=== PATIENT | male | born 1980 | race Caucasian/White ===

== ENCOUNTER 2019-01-30 12:22 | Emergency (ER) | payer SELFPAY ==
--- NOTE | 2019-01-30 12:40 | EDPHYS ---
Physician Documentation [facility] Name: Ray Cespedes Age: 38 yrs Sex: Male : 1980 Arrival Date: 01/30/2019 Time: 12:23 Bed 15 Private MD: ED Physician Anthony Coffmna HPI: 01/30 15:59 This 38 yrs old Male presents to ER via Ambulatory with complaints of Poison snw [place]. 15:59 The patient's rash thought to be caused by Dermatitis Contact allergy. The rash is snw located on the body diffusely. The rash can be described as erythematous, patchy. Onset: The symptoms/episode began/occurred suddenly, and became persistent. Associated signs and symptoms: Pertinent positives: itching. Severity of symptoms: At their worst the symptoms were moderate. The patient has experienced similar episodes in the past, several times. The patient has not recently seen a physician. outdoors working and thinks he was in contact with poison [place]. Historical: - Allergies: 12:31 No Known Allergies; tw2 - Home Meds: 12:31 None [Active]; tw2 - PMHx: 12:31 None; tw2 - PSHx: 12:31 None; tw2 - Immunization history:: Adult Immunizations up to date. - Social history:: Smoking status: . - Ebola Screening: : Patient denies travel to an Ebola-affected area in the 21 days before illness onset. ROS: 15:55 Constitutional: Negative for fever, chills, and weight loss, Eyes: Negative for injury, snw pain, redness, and discharge, ENT: Negative for injury, pain, and discharge, Neck: Negative for injury, pain, and swelling, Cardiovascular: Negative for chest pain, palpitations, and edema, Respiratory: Negative for shortness of breath, cough, wheezing, and pleuritic chest pain, Abdomen/GI: Negative for abdominal pain, nausea, vomiting, diarrhea, and constipation, Back: Negative for injury and pain, : Negative for injury, bleeding, discharge, and swelling, MS/Extremity: Negative for injury and deformity, Skin: Negative for injury and discoloration, + rash with irritation, oozing, pruritis Neuro: Negative for headache, weakness, numbness, tingling, and seizure, Psych: Negative for depression, anxiety, suicide ideation, homicidal ideation, and hallucinations. Exam: 15:54 Constitutional: This is a well developed, well nourished patient who is awake, alert, snw and in no acute distress. Head/Face: Normocephalic, atraumatic. Eyes: Pupils equal round and reactive to light, extra-ocular motions intact. Lids and lashes normal. Conjunctiva and sclera are non-icteric and not injected. Cornea within normal limits. Periorbital areas with no swelling, redness, or edema. ENT: Nares patent. No nasal discharge, no septal abnormalities noted. Tympanic membranes are normal and external auditory canals are clear. Oropharynx with no redness, swelling, or masses, exudates, or evidence of obstruction, uvula midline. Mucous membranes moist. Neck: Trachea midline, no thyromegaly or masses palpated, and no cervical lymphadenopathy. Supple, full range of motion without nuchal rigidity, or vertebral point tenderness. No Meningismus. Chest/axilla: Normal chest wall appearance and motion. Nontender with no deformity. No lesions are appreciated. Cardiovascular: Regular rate and rhythm with a normal S1 and S2. No gallops, murmurs, or rubs. Normal PMI, no JVD. No pulse deficits. Respiratory: Lungs have equal breath sounds bilaterally, clear to auscultation and percussion. No rales, rhonchi or wheezes noted. No increased work of breathing, no retractions or nasal flaring. Abdomen/GI: Soft, non-tender, with normal bowel sounds. No distension or tympany. No guarding or rebound. No evidence of tenderness throughout. Back: No spinal tenderness. No costovertebral tenderness. Full range of motion. MS/ Extremity: Pulses equal, no cyanosis. Neurovascular intact. Full, normal range of motion. Neuro: Awake and alert, GCS 15, oriented to person, place, time, and situation. Cranial nerves II-XII grossly intact. Motor strength 5/5 in all extremities. Sensory grossly intact. Cerebellar exam normal. Normal gait. Psych: Awake, alert, with orientation to person, place and time. Behavior, mood, and affect are within normal limits. 15:54 Skin: contact dermatitis. Vital Signs: 12:31 BP 116 / 68; Pulse 79; Resp 18; Temp 97.6(TE); Pulse Ox 100% on R/A; Weight 81.65 kg tw2 (R); Height 6 ft. 4 in. (193.04 cm) (R); Pain 5/10; 12:31 Body Mass Index 21.91 (81.65 kg, 193.04 cm) tw2 MDM: 12:34 Patient medically screened. snw 15:58 Data reviewed: vital signs, nurses notes. Data interpreted: Pulse oximetry: on room air snw is 100 %. Interpretation: normal. Counseling: I had a detailed discussion with the patient and/or guardian regarding: the historical points, exam findings, and any diagnostic results supporting the discharge/admit diagnosis, the need for outpatient follow up, to return to the emergency department if symptoms worsen or persist or if there are any questions or concerns that arise at home. Special discussion: Based on the history and exam findings, there is no indication for further emergent testing or inpatient evaluation. I discussed with the patient/guardian the need to see the primary care provider for further evaluation of the symptoms. Administered Medications: 12:53 Drug: predniSONE 40 mg Route: PO; rb1 12:54 Follow up: Response: Medication administered at discharge. rb1 12:53 Drug: Pepcid 20 mg Route: PO; rb1 12:53 Follow up: Response: Medication administered at discharge. rb1 12:53 Drug: ZyrTEC - Cetirizine 10 mg Route: PO; rb1 12:53 Follow up: Response: Medication administered at discharge. rb1 Disposition: 20:37 Co-signature as Attending Physician, Anthony Coffman MD Available for consultation at ps1 all times . Disposition: 01/30/19 12:40 Discharged to Home. Impression: Allergic contact dermatitis due to plants, except food. - Condition is Stable. - Discharge Instructions: Allergies, Adult, Contact Dermatitis, Poison [place] Dermatitis, Rash. - Prescriptions for Vistaril 25 mg Oral capsule - take 1 capsule by ORAL route 3 times per day; 30 capsule. Prednisone 20 mg Oral Tablet - take 2 tablet by ORAL route once daily for 5 days; 10 tablet. Pepcid 20 mg Oral Tablet - take 1 tablet by ORAL route once daily; 20 tablet. - Medication Reconciliation Form, Thank You Letter, Antibiotic Education, Prescription Opioid Use form. - Follow up: Private Physician; When: 2 - 3 days; Reason: Recheck today's complaints, Continuance of care, Re-evaluation by your physician. Follow up: Emergency Department; When: As needed; Reason: Worsening of condition. Signatures: Kandice Stacy, PROVIDER RELATIONS REPRESENTATIVE-C PROVIDER RELATIONS REPRESENTATIVE-Csnw Taylor Preciado, RN RN rb1 Marsha Lima RN RN tw2 Anthony Coffman MD MD ps1 Corrections: (The following items were deleted from the chart) 12:55 12:40 01/30/2019 12:40 Discharged to Home. Impression: Allergic contact dermatitis due rb1 to plants, except food. Condition is Stable. Forms are Medication Reconciliation Form, Thank You Letter, Antibiotic Education, Prescription Opioid Use. Follow up: Private Physician; When: 2 - 3 days; Reason: Recheck today's complaints, Continuance of care, Re-evaluation by your physician. Follow up: Emergency Department; When: As needed; Reason: Worsening of condition. snw
--- NOTE | 2019-01-30 12:40 | ER ---
Nurse's Notes [facility] Name: Ray Cespedes Age: 38 yrs Sex: Male : 1980 Arrival Date: 01/30/2019 Time: 12:23 Bed 15 Private MD: Diagnosis: Allergic contact dermatitis due to plants, except food Presentation: 01/30 12:29 Presenting complaint: Patient states: i was outside working last week, Tuesday, its tw2 on my arms and legs and my stomach, and my left arm is swollen, tried otc stuff, its not helping. Transition of care: patient was not received from another setting of care. Onset of symptoms was January 30, 2019. Risk Assessment: Do you want to hurt yourself or someone else? Patient reports no desire to harm self or others. Initial Sepsis Screen: Does the patient meet any 2 criteria? No. Patient's initial sepsis screen is negative. Does the patient have a suspected source of infection? No. Patient's initial sepsis screen is negative. Care prior to arrival: None. 12:29 Method Of Arrival: Ambulatory tw2 12:29 Acuity: DURAN 4 tw2 Triage Assessment: 12:31 General: Appears in no apparent distress. Behavior is calm, cooperative, appropriate tw2 for age. Pain: Complains of pain in left arm. Historical: - Allergies: 12:31 No Known Allergies; tw2 - Home Meds: 12:31 None [Active]; tw2 - PMHx: 12:31 None; tw2 - PSHx: 12:31 None; tw2 - Immunization history:: Adult Immunizations up to date. - Social history:: Smoking status: . - Ebola Screening: : Patient denies travel to an Ebola-affected area in the 21 days before illness onset. Screenin:35 Abuse screen: Denies threats or abuse. Nutritional screening: No deficits noted. rb1 Tuberculosis screening: No symptoms or risk factors identified. Fall Risk None identified. Assessment: 12:35 General: Appears in no apparent distress. comfortable, Behavior is calm, cooperative. rb1 Neuro: Level of Consciousness is awake, alert, obeys commands, Oriented to person, place, time, situation. Cardiovascular: Capillary refill < 3 seconds is brisk in bilateral fingers. Respiratory: Airway is patent Respiratory effort is even, unlabored, Respiratory pattern is regular, symmetrical. GI: No signs and/or symptoms were reported involving the gastrointestinal system. : No signs and/or symptoms were reported regarding the genitourinary system. Derm: Rash noted that is itchy, red, on stomach, bilateral arms and legs. Musculoskeletal: Range of motion: intact in all extremities. Vital Signs: 12:31 BP 116 / 68; Pulse 79; Resp 18; Temp 97.6(TE); Pulse Ox 100% on R/A; Weight 81.65 kg tw2 (R); Height 6 ft. 4 in. (193.04 cm) (R); Pain 5/10; 12:31 Body Mass Index 21.91 (81.65 kg, 193.04 cm) tw2 ED Course: 12:23 Patient arrived in ED. as 12:29 Kandice Stacy FNP-C is [facility]. snw 12:29 Anthony Coffman MD is Attending Physician. snw 12:31 Triage completed. tw2 12:31 Arm band placed on. tw2 12:35 Patient has correct armband on for positive identification. Bed in low position. Call rb1 light in reach. Side rails up X 1. Pulse ox on. NIBP on. 12:36 Taylor Preciado, ALEXYS is Primary Nurse. rb1 12:54 No provider procedures requiring assistance completed. Patient did not have IV access rb1 during this emergency room visit. Administered Medications: 12:53 Drug: predniSONE 40 mg Route: PO; rb1 12:54 Follow up: Response: Medication administered at discharge. rb1 12:53 Drug: Pepcid 20 mg Route: PO; rb1 12:53 Follow up: Response: Medication administered at discharge. rb1 12:53 Drug: ZyrTEC - Cetirizine 10 mg Route: PO; rb1 12:53 Follow up: Response: Medication administered at discharge. rb1 Outcome: 12:40 Discharge ordered by . snw 12:54 Discharged to home ambulatory. rb1 12:54 Condition: stable 12:54 Discharge instructions given to patient, Instructed on discharge instructions, follow up and referral plans. medication usage, Demonstrated understanding of instructions, follow-up care, medications, Prescriptions given X 3. 12:55 Patient left the ED. rb1 Signatures: Kandice Stacy FNP-C CONCESSIONS MANAGER-Csnw Trang Delgado as aTylor Preciado, RN RN rb1 Marsha Lima, RN RN tw2
[2019-01-30] MEDS ORDERED: CETIRIZINE HCL 5 MG TABLET ONE (13:02)
[2019-01-30] MEDS ORDERED: FAMOTIDINE 20 MG TAB ONE (13:02)
[2019-01-30] MEDS ORDERED: predniSONE 20 MG TAB ONE (13:02)
== END 2019-01-30 12:55 | disposition home or self-care (01) ==
LOC: ER 12:22
DX: L23.7 Allergic contact dermatitis due to plants, except food (principal)
CPT/HCPCS: 99283; J7512

== ENCOUNTER 2019-02-27 14:12 | Emergency (ER) | payer SELFPAY ==
--- NOTE | 2019-02-27 15:02 | ER ---
Nurse's Notes [facility] Name: Ray Cespedes Age: 38 yrs Sex: Male : 1980 Arrival Date: 02/27/2019 Time: 14:16 Bed 18 Private MD: None, None Diagnosis: Allergic contact dermatitis Presentation: 02/27 14:21 Presenting complaint: Itchy rash to arms, legs, and neck after swimming in ocean 3 days hb ago. Transition of care: patient was not received from another setting of care. Onset of symptoms was February 24, 2019. Risk Assessment: Do you want to hurt yourself or someone else? Patient reports no desire to harm self or others. Initial Sepsis Screen: Does the patient meet any 2 criteria? No. Patient's initial sepsis screen is negative. Does the patient have a suspected source of infection? No. Patient's initial sepsis screen is negative. Care prior to arrival: None. 14:21 Method Of Arrival: Ambulatory hb 14:21 Acuity: DURAN 4 hb Historical: - Allergies: 14:23 No Known Allergies; hb - Home Meds: 14:23 None [Active]; hb - PMHx: 14:23 None; hb - PSHx: 14:23 None; hb - Immunization history:: Adult Immunizations up to date. - Social history:: Smoking status: Patient uses tobacco products, smokes one pack cigarettes per day. Patient/guardian denies using alcohol, street drugs, The patient lives with family. - Ebola Screening: : No symptoms or risks identified at this time. - Family history:: not pertinent. Screenin:25 Abuse screen: Denies threats or abuse. Nutritional screening: No deficits noted. rb1 Tuberculosis screening: No symptoms or risk factors identified. Fall Risk None identified. Assessment: 14:25 General: Appears in no apparent distress. comfortable, Behavior is calm, cooperative. rb1 Neuro: Level of Consciousness is awake, alert, obeys commands, Oriented to person, place, time, situation. Cardiovascular: Capillary refill < 3 seconds is brisk in bilateral fingers. Respiratory: Airway is patent Respiratory effort is even, unlabored, Respiratory pattern is regular, symmetrical. GI: No signs and/or symptoms were reported involving the gastrointestinal system. : No signs and/or symptoms were reported regarding the genitourinary system. Derm: Rash noted that is itchy, red, raised. 14:25 Pain: Denies pain. rb1 15:20 Reassessment: Patient appears in no apparent distress at this time. No changes from rb1 previously documented assessment. 15:30 Reassessment: No adverse reactions noted at this time. Pt. stated, "I have had these rb1 medications several times for the same thing.". Vital Signs: 14:22 BP 122 / 76; Pulse 78; Resp 16; Temp 98.4; Pulse Ox 100% on R/A; Weight 90.72 kg; hb Height 6 ft. 4 in. (193.04 cm); Pain 8/10; 15:20 BP 123 / 71; Pulse 71; Resp 15; Temp 98.(O); Pulse Ox 100% on R/A; Pain 6/10; rb1 14:22 Body Mass Index 24.34 (90.72 kg, 193.04 cm) hb ED Course: 14:16 Patient arrived in ED. dl4 14:17 None, None is Private Physician. dl4 14:22 Triage completed. hb 14:22 Arm band placed on. hb 14:23 Andrew Whitaker MD is Attending Physician. ma2 14:25 Patient has correct armband on for positive identification. Bed in low position. Call rb1 light in reach. Side rails up X 1. Pulse ox on. NIBP on. 15:05 Taylor Preciado, RN is Primary Nurse. rb1 15:32 No provider procedures requiring assistance completed. Patient did not have IV access rb1 during this emergency room visit. Administered Medications: 15:21 Drug: Benadryl 50 mg Route: IM; Site: right deltoid; rb1 15:30 Follow up: Response: Medication administered at discharge. rb1 15:21 Drug: MethylPREDNISolone Sodium Succinate 125 mg Route: IM; Site: right gluteus; rb1 15:30 Follow up: Response: Medication administered at discharge. rb1 15:21 Drug: Pepcid 10 mg Route: PO; rb1 15:30 Follow up: Response: Medication administered at discharge. rb1 Outcome: 15:01 Discharge ordered by . ma2 15:32 Discharged to home ambulatory. rb1 15:32 Condition: stable 15:32 Discharge instructions given to patient, Instructed on discharge instructions, follow up and referral plans. medication usage, Demonstrated understanding of instructions, follow-up care, medications, Prescriptions given X 2. 15:51 Patient left the ED. rb1 Signatures: Taylor Preciado, RN RN rb1 Kristen Sampson RN RN Andrew Whitaker MD MD ma2 Mamadou Mejia dl4
--- NOTE | 2019-02-27 15:02 | EDPHYS ---
Physician Documentation [facility] Name: Ray Cespedes Age: 38 yrs Sex: Male : 1980 Arrival Date: 02/27/2019 Time: 14:16 Bed 18 Private MD: None, None ED Physician Andrew Whitaker HPI: 02/27 14:59 This 38 yrs old Male presents to ER via Ambulatory with complaints of Rash. ma2 14:59 The patient's rash thought to be caused by Dermatitis Contact allergy. The rash is ma2 located on the body diffusely. Onset: The symptoms/episode began/occurred gradually, 3 day(s) ago. Severity of symptoms: At their worst the symptoms were very mild in the emergency department the symptoms are unchanged. The patient has experienced similar episodes in the past. Historical: - Allergies: 14:23 No Known Allergies; hb - Home Meds: 14:23 None [Active]; hb - PMHx: 14:23 None; hb - PSHx: 14:23 None; hb - Immunization history:: Adult Immunizations up to date. - Social history:: Smoking status: Patient uses tobacco products, smokes one pack cigarettes per day. Patient/guardian denies using alcohol, street drugs, The patient lives with family. - Ebola Screening: : No symptoms or risks identified at this time. - Family history:: not pertinent. ROS: 14:59 Constitutional: Negative for fever, chills, and weight loss. ma2 14:59 Skin: Positive for rash, Negative for discoloration, hematoma, pallor. 14:59 All other systems are negative. Exam: 14:59 Constitutional: This is a well developed, well nourished patient who is awake, alert, ma2 and in no acute distress. ENT: Nares patent. No nasal discharge, no septal abnormalities noted. Tympanic membranes are normal and external auditory canals are clear. Oropharynx with no redness, swelling, or masses, exudates, or evidence of obstruction, uvula midline. Mucous membranes moist. Chest/axilla: Normal chest wall appearance and motion. Nontender with no deformity. No lesions are appreciated. Cardiovascular: Regular rate and rhythm with a normal S1 and S2. No gallops, murmurs, or rubs. Normal PMI, no JVD. No pulse deficits. Respiratory: Lungs have equal breath sounds bilaterally, clear to auscultation and percussion. No rales, rhonchi or wheezes noted. No increased work of breathing, no retractions or nasal flaring. Abdomen/GI: Soft, non-tender, with normal bowel sounds. No distension or tympany. No guarding or rebound. No evidence of tenderness throughout. MS/ Extremity: Pulses equal, no cyanosis. Neurovascular intact. Full, normal range of motion. Neuro: Awake and alert, GCS 15, oriented to person, place, time, and situation. Cranial nerves II-XII grossly intact. Motor strength 5/5 in all extremities. Sensory grossly intact. Cerebellar exam normal. Normal gait. 14:59 Skin: rash a mild rash is noted, rash can be described as urticarial, and is diffusely located. Vital Signs: 14:22 BP 122 / 76; Pulse 78; Resp 16; Temp 98.4; Pulse Ox 100% on R/A; Weight 90.72 kg; hb Height 6 ft. 4 in. (193.04 cm); Pain 8/10; 15:20 BP 123 / 71; Pulse 71; Resp 15; Temp 98.(O); Pulse Ox 100% on R/A; Pain 6/10; rb1 14:22 Body Mass Index 24.34 (90.72 kg, 193.04 cm) hb MDM: 14:23 Patient medically screened. ma2 14:59 Differential diagnosis: allergic reaction. Differential diagnosis: dermatitis vs ma2 eczema. Data reviewed: vital signs, nurses notes. Counseling: I had a detailed discussion with the patient and/or guardian regarding: the historical points, exam findings, and any diagnostic results supporting the discharge/admit diagnosis, the presence of at least one elevated blood pressure reading (>120/80) during this emergency department visit, the need for outpatient follow up. Response to treatment: the patient's symptoms have markedly improved after treatment. Administered Medications: 15:21 Drug: Benadryl 50 mg Route: IM; Site: right deltoid; rb1 15:30 Follow up: Response: Medication administered at discharge. rb1 15:21 Drug: MethylPREDNISolone Sodium Succinate 125 mg Route: IM; Site: right gluteus; rb1 15:30 Follow up: Response: Medication administered at discharge. rb1 15:21 Drug: Pepcid 10 mg Route: PO; rb1 15:30 Follow up: Response: Medication administered at discharge. rb1 Disposition: 02/27/19 15:01 Discharged to Home. Impression: Allergic contact dermatitis. - Condition is Stable. - Discharge Instructions: Contact Dermatitis, [id number]. - Prescriptions for Benadryl 25 mg Oral Capsule - take 1 capsule by ORAL route every 6 hours As needed; 30 tablet. Medrol (Toro) 4 mg Oral Tablets, Dose Pack - take 1 tablet by ORAL route as directed - follow package instructions; 1 packet. - Medication Reconciliation Form, Thank You Letter, Antibiotic Education, Prescription Opioid Use form. - Follow up: Private Physician; When: Tomorrow; Reason: Continuance of care. Signatures: Taylor Preciado RN RN rb1 Kristen Sampson RN RN Andrew Whitaker MD MD ma2 Corrections: (The following items were deleted from the chart) 15:51 15:01 02/27/2019 15:01 Discharged to Home. Impression: Allergic contact dermatitis. rb1 Condition is Stable. Forms are Medication Reconciliation Form, Thank You Letter, Antibiotic Education, Prescription Opioid Use. Follow up: Private Physician; When: Tomorrow; Reason: Continuance of care. ma2
[2019-02-27] MEDS ORDERED: FAMOTIDINE 20 MG TAB ONE (15:26)
[2019-02-27] MEDS ORDERED: METHYLPREDNISOLONE 125 MG INJ ONE (15:26)
[2019-02-27] MEDS ORDERED: DIPHENHYDRAMINE 50 MG/ML VIAL ONE (15:26)
== END 2019-02-27 15:51 | disposition home or self-care (01) ==
LOC: ER 14:12
DX: L23.9 Allergic contact dermatitis, unspecified cause (principal); F17.210 Nicotine dependence, cigarettes, uncomplicated
CPT/HCPCS: 96372; 99283; J2930

== ENCOUNTER 2019-03-10 13:41 | Emergency (ER) | payer SELFPAY ==
[2019-03-10] MEDS ORDERED: METHYLPREDNISOLONE 125 MG INJ ONE (14:29)
[2019-03-10] MEDS ORDERED: FAMOTIDINE 20 MG TAB ONE (14:29)
[2019-03-10] MEDS ORDERED: DIPHENHYDRAMINE 50 MG/ML VIAL ONE (14:29)
[2019-03-10] MEDS ORDERED: predniSONE 20 MG TAB ONE (14:43)
--- NOTE | 2019-03-10 15:04 | ER ---
Nurse's Notes [facility] Name: Ray Cespedes Age: 38 yrs Sex: Male : 1980 Arrival Date: 03/10/2019 Time: 13:46 Bed 26 Private MD: Diagnosis: Allergic contact dermatitis Presentation: 03/10 13:40 Presenting complaint: EMS states: swelling of the R arm and L side of the face that has ca1 gotten worse 2 days ago. Pt reports to have had an exposure to [place] 3 weeks ago. Had come to the ER 3x in a month for the same reason. Transition of care: patient was not received from another setting of care. Onset of symptoms was March 08, 2019. Risk Assessment: Do you want to hurt yourself or someone else? Patient reports no desire to harm self or others. Initial Sepsis Screen: Does the patient meet any 2 criteria? No. Patient's initial sepsis screen is negative. Does the patient have a suspected source of infection? No. Patient's initial sepsis screen is negative. Care prior to arrival: None. 13:40 Method Of Arrival: [facility] ca1 13:40 Acuity: DURAN 3 ca1 Triage Assessment: 13:52 General: Appears in no apparent distress. comfortable, unkempt, Behavior is calm, ca1 cooperative, appropriate for age. Pain: Denies pain. Derm: Skin is intact, is healthy with good turgor, Skin is pink, warm \T\ dry. Rash noted that is red, on right arm and left arm. Historical: - Allergies: 13:52 No Known Allergies; ca1 - Home Meds: 13:52 None [Active]; ca1 - PMHx: 13:52 None; ca1 - PSHx: 13:52 None; ca1 - Immunization history:: Adult Immunizations not up to date. - Social history:: Smoking status: Patient uses tobacco products, smokes one pack cigarettes per day. - Ebola Screening: : Patient negative for fever greater than or equal to 101.5 degrees Fahrenheit, and additional compatible Ebola Virus Disease symptoms Patient denies exposure to infectious person Patient denies travel to an Ebola-affected area in the 21 days before illness onset. - Family history:: not pertinent. - Hospitalizations: : No recent hospitalization is reported. Screenin:54 Abuse screen: Denies threats or abuse. Denies injuries from another. Nutritional ca1 screening: No deficits noted. Tuberculosis screening: No symptoms or risk factors identified. Fall Risk None identified. Assessment: 13:54 General: Appears in no apparent distress. comfortable, Behavior is calm, cooperative, ca1 appropriate for age. General: Reports. Pain: Denies pain. Neuro: Neuro: Level of Consciousness is awake, alert, obeys commands, Oriented to person, place, time, situation. Cardiovascular: Heart tones S1 S2 present Capillary refill < 3 seconds Patient's skin is warm and dry. Respiratory: Airway is patent Respiratory effort is even, unlabored, Respiratory pattern is regular, symmetrical. GI: Abdomen is flat, non-distended, Bowel sounds present X 4 quads. Abd is soft and non tender X 4 quads. : No deficits noted. No signs and/or symptoms were reported regarding the genitourinary system. EENT: No deficits noted. No signs and/or symptoms were reported regarding the EENT system. Derm: Skin is intact, is healthy with good turgor, Skin is pink, warm \T\ dry. Rash noted that is red, urticaria, on right arm and left arm. Derm: Reports itching. Musculoskeletal: Musculoskeletal: Circulation, motion, and sensation intact. Capillary refill < 3 seconds, Range of motion: intact in all extremities. 14:58 Reassessment: Patient appears in no apparent distress at this time. Patient and/or ca1 family updated on plan of care and expected duration. Pain level reassessed. Patient is alert, oriented x 3, equal unlabored respirations, skin warm/dry/pink. 15:09 Reassessment: Patient appears in no apparent distress at this time. 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 Vital Signs: 13:52 BP 113 / 76; Pulse 77; Resp 19 S; Temp 97.6(O); Pulse Ox 98% on R/A; Weight 90.72 kg; ca1 Height 6 ft. 4 in. (193.04 cm); Pain 0/10; 14:58 BP 121 / 83; Pulse 54; Resp 18 S; Temp 98(O); Pulse Ox 98% ; ca1 13:52 Body Mass Index 24.34 (90.72 kg, 193.04 cm) ca1 ED Course: 13:46 Patient arrived in ED. ss 13:46 Andrés Brown MD is Attending Physician. rn 13:48 Stephanie Garibay RN is Primary Nurse. ca1 13:52 Triage completed. ca1 13:52 Arm band placed on right wrist. ca1 13:54 Patient has correct armband on for positive identification. Bed in low position. Call ca1 light in reach. Side rails up X 1. Pulse ox on. NIBP on. Warm blanket given. 13:54 No provider procedures requiring assistance completed. ca1 15:09 Patient did not have IV access during this emergency room visit. ca1 Administered Medications: 14:00 Drug: Pepcid 20 mg Route: PO; ca1 15:00 Follow up: Response: No adverse reaction ca1 14:05 Drug: Benadryl 50 mg Route: IM; Site: right deltoid; ca1 15:00 Follow up: Response: No adverse reaction ca1 14:10 Drug: SOLU-Medrol 125 mg Route: IM; Site: right gluteus; ca1 15:00 Follow up: Response: No adverse reaction; Marked relief of symptoms ca1 14:27 Drug: predniSONE 80 mg Route: PO; ss 15:00 Follow up: Response: No adverse reaction; Marked relief of symptoms ca1 Outcome: 15:03 Discharge ordered by . rn 15:09 Discharged to home via wheelchair. ca1 15:09 Condition: stable 15:09 Discharge instructions given to patient, Instructed on discharge instructions, follow up and referral plans. medication usage, Demonstrated understanding of instructions, follow-up care, medications, Prescriptions given X 1. 15:10 Patient left the ED. ca1 Signatures: Andrés Brown MD MD rn Smirch, Shelby, RN RN Stephanie Garibay RN RN ca1
--- NOTE | 2019-03-10 15:04 | EDPHYS ---
Physician Documentation [facility] Name: Ray Cespedes Age: 38 yrs Sex: Male : 1980 Arrival Date: 03/10/2019 Time: 13:46 Bed 26 Private MD: ED Physician Andérs Brown HPI: 03/10 14:55 This 38 yrs old Male presents to ER via EMS with complaints of Rash. rn 14:55 The patient's rash thought to be caused by Dermatitis. The rash is located on the body rn diffusely. The rash can be described as erythematous, urticarial, vesicular. Onset: The symptoms/episode began/occurred 2 week(s) ago. Severity of symptoms: At their worst the symptoms were moderate in the emergency department the symptoms are unchanged. The patient has experienced similar episodes in the past. Reports got into [employer], has happened multiple times in past, cannot afford prescriptions, so keeps coming in for shots of steroids. Still buying cigarettes. No sob or oral swelling.. Historical: - Allergies: 13:52 No Known Allergies; ca1 - Home Meds: 13:52 None [Active]; ca1 - PMHx: 13:52 None; ca1 - PSHx: 13:52 None; ca1 - Immunization history:: Adult Immunizations not up to date. - Social history:: Smoking status: Patient uses tobacco products, smokes one pack cigarettes per day. - Ebola Screening: : Patient negative for fever greater than or equal to 101.5 degrees Fahrenheit, and additional compatible Ebola Virus Disease symptoms Patient denies exposure to infectious person Patient denies travel to an Ebola-affected area in the 21 days before illness onset. - Family history:: not pertinent. - Hospitalizations: : No recent hospitalization is reported. ROS: 14:55 Constitutional: Negative for fever, chills, and weight loss, Eyes: Negative for injury, rn pain, redness, and discharge, Neck: Negative for injury, pain, and swelling, Cardiovascular: Negative for chest pain, palpitations, and edema, Respiratory: Negative for shortness of breath, cough, wheezing, and pleuritic chest pain, Abdomen/GI: Negative for abdominal pain, nausea, vomiting, diarrhea, and constipation, MS/Extremity: Negative for injury and deformity, Skin: + diffuse rash to extremities and trunk Neuro: Negative for headache, weakness, numbness, tingling, and seizure. Exam: 14:55 Constitutional: This is a well developed, well nourished patient who is awake, alert, rn and in no acute distress. Head/Face: Normocephalic, atraumatic. Eyes: Pupils equal round and reactive to light, extra-ocular motions intact.Mild lef tperiorbital edema without redness or drainage of eye ENT: Oropharynx with no redness, swelling, or masses, exudates, or evidence of obstruction, uvula midline. Mucous membranes moist. Skin: Diffuse erythematous vesicular and urticarial lesions to trunk and extremities, no bullae or skin sloughing. MS/ Extremity: Pulses equal, no cyanosis. Neurovascular intact. Full, normal range of motion. Equal circumference. Vital Signs: 13:52 BP 113 / 76; Pulse 77; Resp 19 S; Temp 97.6(O); Pulse Ox 98% on R/A; Weight 90.72 kg; ca1 Height 6 ft. 4 in. (193.04 cm); Pain 0/10; 14:58 BP 121 / 83; Pulse 54; Resp 18 S; Temp 98(O); Pulse Ox 98% ; ca1 13:52 Body Mass Index 24.34 (90.72 kg, 193.04 cm) ca1 MDM: 13:46 Patient medically screened. rn 14:55 Differential diagnosis: contact dermatitis. rn 15:01 Data reviewed: vital signs, nurses notes, and as a result, I will discharge patient. rn Counseling: I had a detailed discussion with the patient and/or guardian regarding: the historical points, exam findings, and any diagnostic results supporting the discharge/admit diagnosis, the need for outpatient follow up, to return to the emergency department if symptoms worsen or persist or if there are any questions or concerns that arise at home. Response to treatment: the patient's symptoms have mildly improved after treatment, and as a result, I will discharge patient. Special discussion: I discussed with the patient/guardian in detail that at this point there is no indication for admission to the hospital. It is understood, however, that if the symptoms persist or worsen the patient needs to return immediately for re-evaluation. ED course: Pt states unable to buy meds but has cigarettes, urged him to buy steroids or wont improve. . Administered Medications: 14:00 Drug: Pepcid 20 mg Route: PO; ca1 15:00 Follow up: Response: No adverse reaction ca1 14:05 Drug: Benadryl 50 mg Route: IM; Site: right deltoid; ca1 15:00 Follow up: Response: No adverse reaction ca1 14:10 Drug: SOLU-Medrol 125 mg Route: IM; Site: right gluteus; ca1 15:00 Follow up: Response: No adverse reaction; Marked relief of symptoms ca1 14:27 Drug: predniSONE 80 mg Route: PO; ss 15:00 Follow up: Response: No adverse reaction; Marked relief of symptoms ca1 Disposition: 03/10/19 15:03 Discharged to Home. Impression: Allergic contact dermatitis. - Condition is Stable. - Discharge Instructions: Contact Dermatitis. - Prescriptions for Medrol (Toro) 4 mg Oral Tablets, Dose Pack - take 1 tablet by ORAL route as directed - follow package instructions; 1 packet. - Medication Reconciliation Form, Thank You Letter, Antibiotic Education, Prescription Opioid Use form. - Follow up: Private Physician; When: As needed; Reason: Recheck today's complaints, Re-evaluation by your physician. - Problem is an ongoing problem. - Symptoms have improved. Signatures: Andrés Brown MD MD rn Smirch, Shelby, RN RN ss Stephanie Garibay RN RN ca1 Corrections: (The following items were deleted from the chart) 15:10 15:03 03/10/2019 15:03 Discharged to Home. Impression: Allergic contact dermatitis. ca1 Condition is Stable. Forms are Medication Reconciliation Form, Thank You Letter, Antibiotic Education, Prescription Opioid Use. Follow up: Private Physician; When: As needed; Reason: Recheck today's complaints, Re-evaluation by your physician. Problem is an ongoing problem. Symptoms have improved. rn
== END 2019-03-10 15:10 | disposition home or self-care (01) ==
LOC: ER 13:41
DX: L23.9 Allergic contact dermatitis, unspecified cause (principal); F17.210 Nicotine dependence, cigarettes, uncomplicated
CPT/HCPCS: 96372; 99284; J2930; J7512

== ENCOUNTER 2019-09-27 11:08 | Emergency (ER) | payer SELFPAY ==
--- NOTE | 2019-09-27 11:47 | EDPHYS ---
Physician Documentation [facility] Name: Ray Cespedes Age: 38 yrs Sex: Male : 1980 Arrival Date: 09/27/2019 Time: 11:09 Bed 14 Private MD: ED Physician Andrés Brown HPI: 09/27 11:52 This 38 yrs old Male presents to ER via Ambulatory with complaints of Wrist kb Swelling. 11:52 The patient presents with cellulitis of the right wrist. Description: draining, kb erythematous, hot, swollen. Onset: The symptoms/episode began/occurred 3 day(s) ago. Possible cause(s): laceration. Associated signs and symptoms: Pertinent positives: erythema, swelling. Modifying factors: the symptoms are alleviated by nothing, the symptoms are aggravated by nothing. Severity of symptoms: At their worst the symptoms were moderate, in the emergency department the symptoms are unchanged. The patient has experienced similar episodes in the past, a few times. The patient has not recently seen a physician. Pt reports he cut his wrist 4-5 days ago and glued it shut right away. States the glue was pulled off and then it started getting red and swollen. Came in today for worsening symptoms. 'When I've had infections like this before the bactrim worked to get rid of it." Last tetanus shot 3 years ago. Denies numbness, tingling, pain to right hand. . Historical: - Allergies: 11:21 No Known Allergies; iw - Home Meds: 11:21 None [Active]; iw - PMHx: 11:21 None; iw - PSHx: 11:21 Appendectomy; left hand; left arm; iw - Immunization history:: Adult Immunizations up to date. - Social history:: Smoking status: Patient uses tobacco products, smokes one pack cigarettes per day. - Ebola Screening: : Patient negative for fever greater than or equal to 101.5 degrees Fahrenheit, and additional compatible Ebola Virus Disease symptoms Patient denies exposure to infectious person Patient denies travel to an Ebola-affected area in the 21 days before illness onset No symptoms or risks identified at this time. ROS: 11:51 Constitutional: Negative for fever, chills, and weight loss, Cardiovascular: Negative kb for chest pain, palpitations, and edema, Respiratory: Negative for shortness of breath, cough, wheezing, and pleuritic chest pain, Abdomen/GI: Negative for abdominal pain, nausea, vomiting, diarrhea, and constipation, Back: Negative for injury and pain, MS/Extremity: Negative for injury and deformity, Neuro: Negative for headache, weakness, numbness, tingling, and seizure. 11:51 Skin: Positive for cellulitis, erythema, laceration(s), swelling, of the right wrist. Exam: 11:51 Constitutional: This is a well developed, well nourished patient who is awake, alert, kb and in no acute distress. Head/Face: Normocephalic, atraumatic. ENT: Nares patent. No nasal discharge, no septal abnormalities noted. Tympanic membranes are normal and external auditory canals are clear. Oropharynx with no redness, swelling, or masses, exudates, or evidence of obstruction, uvula midline. Mucous membranes moist. Neck: Trachea midline, no thyromegaly or masses palpated, and no cervical lymphadenopathy. Supple, full range of motion without nuchal rigidity, or vertebral point tenderness. No Meningismus. Chest/axilla: Normal chest wall appearance and motion. Nontender with no deformity. No lesions are appreciated. Cardiovascular: Regular rate and rhythm with a normal S1 and S2. No gallops, murmurs, or rubs. Normal PMI, no JVD. No pulse deficits. Respiratory: Lungs have equal breath sounds bilaterally, clear to auscultation and percussion. No rales, rhonchi or wheezes noted. No increased work of breathing, no retractions or nasal flaring. Abdomen/GI: Soft, non-tender, with normal bowel sounds. No distension or tympany. No guarding or rebound. No evidence of tenderness throughout. Back: No spinal tenderness. No costovertebral tenderness. Full range of motion. MS/ Extremity: Pulses equal, no cyanosis. Neurovascular intact. Full, normal range of motion. Neuro: Awake and alert, GCS 15, oriented to person, place, time, and situation. Cranial nerves II-XII grossly intact. Motor strength 5/5 in all extremities. Sensory grossly intact. Cerebellar exam normal. Normal gait. 11:51 Skin: cellulitis, that is moderate, on the right wrist, injury, laceration(s), the wound is approximately 3 cm(s), of the right wrist, that can be described as no foreign body, without bleeding. Vital Signs: 11:21 BP 121 / 81; Pulse 90; Resp 16; Temp 97.8; Pulse Ox 99% on R/A; Weight 83.91 kg; Height iw 6 ft. 4 in. (193.04 cm); Pain 8/10; 12:01 BP 127 / 79; Pulse 85; Resp 16; Temp 98; Pulse Ox 99% ; bp 11:21 Body Mass Index 22.52 (83.91 kg, 193.04 cm) iw MDM: 11:23 Patient medically screened. la1 11:44 Data reviewed: vital signs, nurses notes. Data interpreted: Pulse oximetry: on room air kb is 99 %. Interpretation: normal. Counseling: I had a detailed discussion with the patient and/or guardian regarding: the historical points, exam findings, and any diagnostic results supporting the discharge/admit diagnosis, the need for outpatient follow up, a family practitioner, to return to the emergency department if symptoms worsen or persist or if there are any questions or concerns that arise at home. ED course: My recommendation was blood work, ultrasound, IV antibiotics and admission. Pt refuses these interventions. States "I just want to get some antibiotics and go." Educated on importance of returning for worsening symptoms, as well as, signs of compartment syndrome. . 09/27 11:42 Order name: Wound Culture bp Administered Medications: 11:44 CANCELLED (Patient Refused): Clindamycin 600 mg IVPB once over 30 mins; (mix in 50 mL) kb 11:50 Drug: Bactrim (160 mg-800 mg (DS) 1 tablet Route: PO; bp 11:59 Follow up: Response: Medication administered at discharge. bp 11:50 Drug: KeFLEX 500 mg Route: PO; bp 11:59 Follow up: Response: Medication administered at discharge. bp Disposition: 17:36 Co-signature as Attending Physician, Andrés Brown MD. rn Disposition: 09/27/19 11:46 Discharged to Home. Impression: Cellulitis of right upper limb - wrist. - Condition is Stable. - Discharge Instructions: Cellulitis, Adult, [id number]. - Prescriptions for Keflex 500 mg Oral Capsule - take 1 capsule by ORAL route every 8 hours for 10 days; 30 capsule. Bactrim DS 800- 160 mg Oral Tablet - take 1 tablet by ORAL route every 12 hours for 10 days; 20 tablet. - Medication Reconciliation Form, Thank You Letter, Antibiotic Education, Prescription Opioid Use form. - Follow up: Emergency Department; When: As needed; Reason: Worsening of condition. Follow up: Private Physician; When: 2 - 3 days; Reason: Recheck today's complaints, Continuance of care, Re-evaluation by your physician. Signatures: Dispatcher [employer] [facility] Ellen Tejada, SHAFT TENDER-C SHAFT TENDER-Ckb Ai Bermudez, RN RN iw Andrés Brown MD MD rn Attema, Lee, SHAFT TENDER-C SHAFT TENDER-Cla1 Shaggy Ann, RN RN bp Corrections: (The following items were deleted from the chart) 11:21 11:21 PSHx: None; iw 11:42 11:25 IV Saline Lock ordered. kb ok 11:44 11:25 Clindamycin 600 mg IVPB once over 30 mins; (mix in 50 mL) ordered. kb kb 11:48 11:25 Extrmty Nonvasular [employer]+[id number].RAD.BRZ ordered. [facility] 12:01 11:46 09/27/2019 11:46 Discharged to Home. Impression: Cellulitis of right upper limb - bp wrist. Condition is Stable. Forms are Medication Reconciliation Form, Thank You Letter, Antibiotic Education, Prescription Opioid Use. Follow up: Emergency Department; When: As needed; Reason: Worsening of condition. Follow up: Private Physician; When: 2 - 3 days; Reason: Recheck today's complaints, Continuance of care, Re-evaluation by your physician. kb
--- NOTE | 2019-09-27 11:47 | ER ---
Nurse's Notes [facility] Name: Ray Cespedes Age: 38 yrs Sex: Male : 1980 Arrival Date: 09/27/2019 Time: 11:09 Bed 14 Private MD: Diagnosis: Cellulitis of right upper limb-wrist Presentation: 09/27 11:19 Presenting complaint: Patient states: cut right wrist with razor while cutting copper iw 4-5 days ago, now appears infected, swollen, painful, red. Transition of care: patient was not received from another setting of care. Onset of symptoms was September 21, 2019. Risk Assessment: Do you want to hurt yourself or someone else? Patient reports no desire to harm self or others. Initial Sepsis Screen: Does the patient meet any 2 criteria? No. Patient's initial sepsis screen is negative. Does the patient have a suspected source of infection? No. Patient's initial sepsis screen is negative. Care prior to arrival: None. 11:19 Method Of Arrival: Ambulatory iw 11:19 Acuity: DURAN 3 iw Triage Assessment: 11:20 General: Appears in no apparent distress. comfortable, Behavior is calm, cooperative, bp appropriate for age. Pain: Complains of pain in right wrist. EENT: No deficits noted. Neuro: No deficits noted. Cardiovascular: No deficits noted. Respiratory: No deficits noted. GI: No signs and/or symptoms were reported involving the gastrointestinal system. : No signs and/or symptoms were reported regarding the genitourinary system. Derm: No deficits noted. Musculoskeletal: No deficits noted. Injury Description: Laceration sustained to right wrist is contaminated, not bleeding. Historical: - Allergies: 11:21 No Known Allergies; iw - Home Meds: 11:21 None [Active]; iw - PMHx: 11:21 None; iw - PSHx: 11:21 Appendectomy; left hand; left arm; iw - Immunization history:: Adult Immunizations up to date. - Social history:: Smoking status: Patient uses tobacco products, smokes one pack cigarettes per day. - Ebola Screening: : Patient negative for fever greater than or equal to 101.5 degrees Fahrenheit, and additional compatible Ebola Virus Disease symptoms Patient denies exposure to infectious person Patient denies travel to an Ebola-affected area in the 21 days before illness onset No symptoms or risks identified at this time. Screenin:21 Abuse screen: Denies threats or abuse. Denies injuries from another. Nutritional bp screening: No deficits noted. Tuberculosis screening: No symptoms or risk factors identified. Fall Risk None identified. Assessment: 11:21 General: SEE TRIAGE NOTE. bp 11:42 Reassessment: PT REFUSING PIV AND BLOODWORK, PROVIDER NOTIFIED. bp 12:00 Reassessment: PT D/C HOME AMBULATORY, DX WITH CELLULITIS. bp Vital Signs: 11:21 BP 121 / 81; Pulse 90; Resp 16; Temp 97.8; Pulse Ox 99% on R/A; Weight 83.91 kg; Height iw 6 ft. 4 in. (193.04 cm); Pain 8/10; 12:01 BP 127 / 79; Pulse 85; Resp 16; Temp 98; Pulse Ox 99% ; bp 11:21 Body Mass Index 22.52 (83.91 kg, 193.04 cm) iw ED Course: 11:09 Patient arrived in ED. rg4 11:20 Triage completed. iw 11:21 Arm band placed on. bp 11:21 Patient has correct armband on for positive identification. Bed in low position. Call bp light in reach. Side rails up X2. 11:23 Adair Caba FNP-C is PHCP. la1 11:23 Andrés Brown MD is Attending Physician. la1 11:24 PHCP role handed off by Adair Caba FNP-C kb 11:24 Ellen Tejada FNP-C is PHCP. kb 11:41 Shaggy Ann, RN is Primary Nurse. bp 11:59 No provider procedures requiring assistance completed. Patient did not have IV access bp during this emergency room visit. Wound care: to laceration located on right wrist was cleaned with Hibiclens, dressed with cling, Patient tolerated well. Administered Medications: 11:44 CANCELLED (Patient Refused): Clindamycin 600 mg IVPB once over 30 mins; (mix in 50 mL) kb 11:50 Drug: Bactrim (160 mg-800 mg (DS) 1 tablet Route: PO; bp 11:59 Follow up: Response: Medication administered at discharge. bp 11:50 Drug: KeFLEX 500 mg Route: PO; bp 11:59 Follow up: Response: Medication administered at discharge. bp Outcome: 11:46 Discharge ordered by . jami 12:00 Discharged to home ambulatory. bp 12:00 Condition: stable 12:00 Discharge instructions given to patient, Instructed on discharge instructions, follow up and referral plans. medication usage, wound care, Demonstrated understanding of instructions, follow-up care, medications, wound care, Prescriptions given X 2. 12:01 Patient left the ED. bp Addendum: 09/30/2019 07:40 Addendum: Culture Results: Positive wound culture. No further action required. Bacteria e b sensitive to prescribed antibiotic. Signatures: Ellen Tejada, FAMILIA-C PLANT AND INSTRUMENT ENGINEER-Ckb Ai Bermudez, RN RN Adair Caba PLANT AND INSTRUMENT ENGINEER-C PLANT AND INSTRUMENT ENGINEER-Cla1 Ruth Garcia rg4 Shaggy Ann, RN RN Yi Patel Corrections: (The following items were deleted from the chart) 09/27 11:21 11:21 PSHx: None; [facility]
[2019-09-27] MEDS ORDERED: CEPHALEXIN 250 MG CAP ONE (11:53)
[2019-09-27] MEDS ORDERED: SMZ./TMP. 800/160 MG TABLET ONE (11:54)
[2019-09-27 12:21] VITALS: O2SAT 99
[2019-09-27 12:22] VITALS: BP 127/79; TEMP 98
== END 2019-09-27 12:01 | disposition home or self-care (01) ==
LOC: ER 11:08
DX: L03.113 Cellulitis of right upper limb (principal); F17.210 Nicotine dependence, cigarettes, uncomplicated
CPT/HCPCS: 87070; 87077; 87186; 87205; 99283